=== PATIENT | female | born 1990 | race Caucasian/White ===

== ENCOUNTER 2017-06-13 07:46 | Outpatient (CLI) | payer OTHER ==
--- NOTE | 2017-06-13 10:43 | Ultrasound Report ---
OB ULTRASOUND: 06/13/2017 CLINICAL INDICATION: anatomy. TECHNIQUE: Real-time scanning was performed with national sales representative static images obtained. LAST MENSTRUAL PERIOD --- Clinical Age 27 weeks US Age 22 weeks 1 day EFW [place] 477 EFW% [place] --- Heart Rate 142 bpm EDC 09/12/2017 US EDC 10/16/2017 BPD [place] 22 weeks 0 days; Mean mm 53 HC [place] 22 weeks 1 day; Mean mm 200 AC [place] 22 weeks 3 days; Mean mm 175 FL [place] 21 weeks 5 days; Mean mm 37 Presentation cephalic Placental Location anterior Cervical Length 3.5 cm Amniotic Fluid 14.8 cm FINDINGS: There is a single viable intrauterine gestation, in cephalic presentation. heart rate is 142 BPM. The placenta is anterior, without evidence of previa. Amniotic fluid volume is subjectively normal. By size, the fetus measures 22 weeks 1 day (27 weeks by date provided on order). The following anatomic structures were visualized and appear normal: The intracranial contents, including the ventricles and posterior fossa; the lips and orbits; the spine; the heart, including 4-chamber view and outflow tracts, and diaphragm; the abdominal contents, including the stomach, the bilateral kidneys, and urinary bladder, as well as a normal 3- vessel cord insertion; 4 limbs. No free fluid or adnexal lesion is appreciated. IMPRESSION: SINGLE VIABLE INTRAUTERINE GESTATION, MEASURING 22 WEEKS 1 DAY, APPROXIMATELY 5 WEEKS OFF FROM DATING PROVIDED ON ORDER. NORMAL ANATOMIC SURVEY. [facility]
== END 2017-06-13 07:47 | disposition home or self-care (01) ==
LOC: DI 07:46
PROVIDERS: ATTEND Registered Nurse
DX: Z34.82 Encounter for supervision of other normal pregnancy, second trimester (principal); Z3A.22 22 weeks gestation of pregnancy
CPT/HCPCS: 76811

== ENCOUNTER 2017-09-07 14:30 | Outpatient (CLI) | payer OTHER ==
[2017-09-07 19:05] LABS: BASOPHILS % (AUTO) 0.3 %; EOSINOPHILS # (AUTO) 0.2 10^3/uL (0.0-0.7); EOSINOPHILS % (AUTO) 2.1 %; HGB - HEMOGLOBIN 10.2 g/dL (12.0-16.0); LYMPHOCYTES # (AUTO) 1.5 10^3/uL (1.5-3.5); LYMPHOCYTES % (AUTO) 15.6 %; MEAN CORPUSCULAR HEMOGLOBIN 28.7 pg (27.0-31.0); MEAN CORPUSCULAR HGB CONC 33.5 g/dL (32.0-36.0); MEAN CORPUSCULAR VOLUME 85.8 fL (81.0-99.0); MEAN PLATELET VOLUME 9.4 fL (7.9-10.8); MONOCYTES % (AUTO) 10.1 %; NEUTROPHILS # (AUTO) 6.9 10^3/uL (1.5-6.6); NEUTROPHILS % (AUTO) 71.9 %; PLT - PLATELET COUNT 201 10^3/uL (130-450); RED BLOOD COUNT 3.56 10^6/uL (4.20-5.40); RED CELL DISTRIBUTION WIDTH 13.6 % (12.0-15.0); WHITE BLOOD COUNT 9.6 x10^3/uL (4.8-10.8)
[2017-09-07 19:07] LABS: BILIRUBIN,URINE NEGATIVE (NEGATIVE); GLUCOSE, URINE (UA) NEGATIVE (NEGATIVE); KETONES,URINE (UA) NEGATIVE (NEGATIVE); LEUKOCYTE ESTERASE, URINE NEGATIVE (NEGATIVE); NITRITE,URINE NEGATIVE (NEGATIVE); OCCULT BLOOD,URINE NEGATIVE (NEGATIVE); PH,URINE 6.5 PH (5.0-7.5); PROTEIN,URINE NEGATIVE (NEGATIVE); UROBILINOGEN,URINE 0.2 (NORMAL) E.U./dL (NORMAL)
[2017-09-07 19:17] LABS: CLARITY,URINE CLEAR (CLEAR); RBC,URINE 0-5 /HPF (0-5); SQUAMOUS EPITHELIAL CELL,UR RARE Squamous (<= Few)
[2017-09-07 19:18] LABS: BACTERIA,URINE Moderate /HPF (None Seen)
[2017-09-08 13:13] LABS: HEPATITIS B SURFACE ANTIGEN NON-REACTIVE (NON-REACTIVE)
[2017-09-08 14:17] LABS: HIV AG/AB 4TH GEN NON-REACTIVE (NON-REACTIVE)
== END 2017-09-07 14:31 | disposition home or self-care (01) ==
LOC: LAB.WCP 14:30
PROVIDERS: ATTEND Nurse Practitioner Obstetrics & Gynecology
DX: Z36.9 Encounter for antenatal screening, unspecified (principal)
CPT/HCPCS: 36415; 81001; 81599; 85025; 86762; 86850; 86900; 86901; 87340; 87389

== ENCOUNTER 2017-09-26 16:57 | Outpatient (CLI) | payer OTHER | END 2017-09-26 16:58 | disposition home or self-care (01) | LOC: LAB.R 16:57 | PROVIDERS: ATTEND Nurse Practitioner Obstetrics & Gynecology | DX: Z36.85 Encounter for antenatal screening for Streptococcus B (principal) | CPT/HCPCS: 87081 ==

== ENCOUNTER 2017-10-03 13:44 | Outpatient (CLI) | payer OTHER ==
[2017-10-03 15:21] LABS: HGB - HEMOGLOBIN 9.7 g/dL (12.0-16.0); MEAN CORPUSCULAR HGB CONC 32.8 g/dL (32.0-36.0); MEAN CORPUSCULAR VOLUME 82.4 fL (81.0-99.0); MEAN PLATELET VOLUME 9.1 fL (7.9-10.8); RED BLOOD COUNT 3.58 10^6/uL (4.20-5.40); RED CELL DISTRIBUTION WIDTH 14.8 % (12.0-15.0); WHITE BLOOD COUNT 10.1 x10^3/uL (4.8-10.8)
== END 2017-10-03 13:45 | disposition home or self-care (01) ==
LOC: LAB 13:44
PROVIDERS: ATTEND Registered Nurse
DX: Z34.83 Encounter for supervision of other normal pregnancy, third trimester (principal)
CPT/HCPCS: 36415; 82950; 86850

== ENCOUNTER 2017-10-10 09:52 | Inpatient (IN) | payer OTHER ==
[2017-10-10] MEDS ORDERED: SODIUM CHLORIDE FLUSH 0.9% 10 ML SYRINGE ONE (10:10)
[2017-10-10] MEDS ORDERED: fentaNYL 100 MCG/2 ML VIAL IVP PRN (10:20)
[2017-10-10] MEDS ORDERED: SODIUM CHLORIDE FLUSH 0.9% 10 ML SYRINGE IVP PRN (10:20)
[2017-10-10] MEDS ORDERED: OXYTOCIN 10 UNIT/ML VIAL ONE (10:34)
[2017-10-10] MEDS ORDERED: LIDOCAINE 1% 50 ML MDV ONE (10:34)
[2017-10-10] MEDS ORDERED: MINERAL OIL LIGHT 10 ML MC ONE (10:34)
[2017-10-10] MEDS ORDERED: miSOPROStol 200 MCG TABLET ONE (10:34)
[2017-10-10] MEDS ORDERED: OXYTOCIN/SODIUM CHLORIDE 500 ML IV ONE (10:35)
[2017-10-10 10:38] LABS: BASOPHILS % (AUTO) 0.2 %; EOSINOPHILS # (AUTO) 0.1 10^3/uL (0.0-0.7); EOSINOPHILS % (AUTO) 0.9 %; HGB - HEMOGLOBIN 10.2 g/dL (12.0-16.0); LYMPHOCYTES # (AUTO) 1.9 10^3/uL (1.5-3.5); LYMPHOCYTES % (AUTO) 11.9 %; MEAN CORPUSCULAR HEMOGLOBIN 26.8 pg (27.0-31.0); MEAN CORPUSCULAR VOLUME 81.3 fL (81.0-99.0); MEAN PLATELET VOLUME 8.8 fL (7.9-10.8); MONOCYTES # (AUTO) 0.7 10^3/uL (0.0-1.0); MONOCYTES % (AUTO) 4.8 %; NEUTROPHILS # (AUTO) 12.9 10^3/uL (1.5-6.6); NEUTROPHILS % (AUTO) 82.2 %; PLT - PLATELET COUNT 203 10^3/uL (130-450); RED BLOOD COUNT 3.79 10^6/uL (4.20-5.40); RED CELL DISTRIBUTION WIDTH 14.4 % (12.0-15.0); WHITE BLOOD COUNT 15.7 x10^3/uL (4.8-10.8)
[2017-10-10] MEDS ORDERED: OXYTOCIN/SODIUM CHLORIDE 250 ML IV ONE (10:44)
[2017-10-10] MEDS ORDERED: WITCH HAZEL/GLYCERIN 1 EACH MED..PAD TOP PRN (10:44)
--- NOTE | 2017-10-10 10:55 | HISTORY & PHYSICAL EXAMINATION ---
Admit History - Instructions [place]/Slash: -Left hand click circles element as positive or present. -Right hand click slashes element as negative or not present. - Visit Reason Visit Reason: Contractions - : 2 Parity: 1 Premature: 0 Ectopic: 0 : 0 Care: positive: [facility] Risk/History: positive: None Complications This : positive: None Smoking Status: Never smoker - Mother's Labs Mother's Blood Type: positive: O Mother's RH: positive: Positive GBS: positive: Group B Step Negative Rubella Status: positive: Immune - Other Maternal History Other Maternal History: HPI: This 27yo at 38.6wks gestation by L=8.6wk U/S who presents for contractions. Upon evaluation she was noted to be 7/100/0 with bulging bag of muñoz. She was admitted to L&D for management. She reports contractions began this morning at approximately 0500. Denies LoF. Dating criteria: 1. LMP 01/11/2017 2. 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 Meds: PNV, Zoloft Allergies: Bactrim Physical Exam: Abdomen gravid, soft, nontender FHR baseline 140 Cervix: 7/100/0, vertex, intact membranes Early Labs: Blood type O pos, antibody neg Hgb 10.2 Hct: 30.5 PLT 201 Rubella immune HIV non-reactive GC/CT: neg Hep B non-reactive RPR non-reactive Tdap 09/12/2017 Ultrasounds 06/13/2017, FAS WNL, anterior placenta, no previa, MARCUS WNL Assessment: 27yo @ 38.6wks gestation by L=8.6wk U/S Active labor Desires natural labor Plan: Continuous monitoring Anticipate spontaneous vaginal delivery Physical - Abdominal Exam Vital Signs: Temp Pulse Resp BP Pulse Ox 36.8 C 88 20 108/63 99 10/10/17 10:00 10/10/17 10:00 10/10/17 10:00 10/10/17 10:00 10/10/17 10:00
[2017-10-10] MEDS ORDERED: LACTATED RINGERS 1,000 ML IV SCH (11:00)
--- NOTE | 2017-10-10 11:05 | DELIVERY NOTE ---
Delivery Note - Labor Labor: positive: Spontaneous - Delivery Method Delivery Method: positive: Spontaneous vaginal delivery - Presentation Presentation: positive: Vertex, HEIDI - left occiput anterior - Nuchal Cord Nuchal Cord: positive: None - Amniotic Fluid Description Amniotic Fluid Description: positive: Clear - Episiotomy Type Episiotomy Type: positive: None - Laceration Laceration: positive: None - Delivery Outcome Delivery Outcome: positive: Livebirth - Igo: positive: Placed in direct skin contact with mother, Stimulated, Warmed , [place] used Igo sex: positive: Male - Cord Cord: positive: 3 vessels - Placenta Placenta: positive: Intact, Spontaneous - Estimated Blood Loss Estimated Blood Loss (in cc): 100 - Delivery Comments (Free Text/Narrative) Delivery Comments (Free Text/Narrative): Labor: This 27yo @ 38.6wks by L= 8.6wk U/S presented at approximately 0955 in active labor. Cervix was 7/100/0 and vertex. FHR pattern demonstrated baseline 140. Normal labor course. SROM occurred at 1029 and was noted to be a moderate amount of clear fluid. : Normal SVB of a viable male infant. No nuchal cord. 's 9/9 at 1 and 5 min at 1033 on 10/10/2017. The was placed on maternal abdomen, stimulated, dried, and placed skin to skin. The umbilical cord was allowed to stop pulsating and was then doubly clamped and cut by the patient. Cord blood was obtained. Placenta delivered spontaneously and intact at approximately 1038. 3VC. Pitocin was administered via IV for hemostasis. EBL 100mL. Uterine fundus firm and there is no excessive bleeding. The perineum, vagina, and cervix were inspected and found to be intact. initiated. Family bonding well. Both mother and baby are in stable condition.
[2017-10-10] MEDS: IBUPROFEN 800 MG TABLET PO SCH ×2 (11:11→18:20)
[2017-10-10] MEDS: ACETAMINOPHEN 500 MG TABLET PO SCH ×2 (11:12→18:20)
[2017-10-10] MEDS ORDERED: SODIUM CHLORIDE FLUSH 0.9% 10 ML SYRINGE IVP SCH (17:00)
[2017-10-10] MEDS: DOCUSATE SODIUM 100 MG CAPSULE PO SCH (21:32)
[2017-10-11] MEDS: IBUPROFEN 800 MG TABLET PO SCH ×3 (00:33→14:15)
[2017-10-11] MEDS: ACETAMINOPHEN 500 MG TABLET PO SCH ×2 (03:30→11:04)
--- NOTE | 2017-10-11 09:32 | Discharge Plan ---
Discharge Plan Disposition: 01 Home, Self Care Condition: Good Diet: Regular Activity Restrictions: No Restrictions Shower Restrictions: No Driving Restrictions: No Weight Bearing: Full Weight Additional Instructions or Follow Up instructions: 10/11/2017, 0930, PPD#1 S: Bonding well with baby. without difficulty and her milk has come in. Wakes baby to nurse every 3 hours. Perineum comfortable and pain well controlled with ibuprofen. Bleeding decreased and is light. O: T 36.9, HR 72, BP 113/79, RR 16 Heart RRR w/o M/R/G, lungs CTAB, abdomen soft and nontender with fundus firm at U-1. Bilateral LE's no edema. A: 27yo -->P2 PPD#1, s/p TSVD of viable male infant P: Discharge home today on PPD#1. Reviewed self care and warning signs. Planning Mirena IUD for pp contractions - has had this in the past and it worked well for her. Will f/u with myself at [facility] in 3 and 8 weeks or sooner PRN. No Smoking: If you smoke, Please STOP! Call for help. Follow-up with: Marisabel Elizalde CNM, COMMUTATOR TESTER [Provider Admit Priv/Credential] -
[2017-10-11] MEDS: DOCUSATE SODIUM 100 MG CAPSULE PO SCH (11:04)
[2017-10-11 14:13] VITALS: BP 119/63
--- NOTE | 2017-10-11 14:15 | Labor Flowsheet ---
Labor Flowsheet Datetime Report Generated by CPN: 10/11/2017 14:15 Datetime: 10/11/2017 13:21 VITAL SIGNS NBP Sys/Karina/Mean (mmHg): 119 : 63 : 76 Pulse: 89 Datetime: 10/10/2017 13:05 SpO2 (%): 99 Datetime: 10/10/2017 11:45 VAGINAL EXAM Membranes Ruptured Date/Time: 10/10/2017 10:29 Amniotic Fluid Odor: Normal Datetime: 10/10/2017 10:35 STAGE 2 Stage 2 Comments: pt pushed the placenta out - plac intact/3 vessels /[place] presentation/Central i nsertion of cord
== END 2017-10-11 13:20 | disposition home or self-care (01) | DRG 775 ==
LOC: WFO 09:52 → FBP 09:53 → WFO 09:59 → FBP 10:00 → UNDOFXCLIACCOM 10:27
PROVIDERS: ADMIT Nurse Practitioner Obstetrics & Gynecology; ATTEND Nurse Practitioner Obstetrics & Gynecology
PROC: 10E0XZZ Delivery of Products of Conception, External Approach (ICD-10-PCS; principal; 2017-10-10)
DX: O99.344 Other mental disorders complicating childbirth (principal); Z37.0 Single live birth; F41.9 Anxiety disorder, unspecified; Z3A.38 38 weeks gestation of pregnancy
CPT/HCPCS: 85025; 99213